=== PATIENT | female | born 1985 | race Caucasian/White ===

== ENCOUNTER 2017-12-29 18:35 | Emergency (ER) | payer OTHER ==
[~2017-12-29] VITALS: Ht 165.1 cm; Wt 77.6 kg
[2017-12-29 18:54] VITALS: Ht 165.1 cm; Wt 77.6 kg
[2017-12-29 19:44] VITALS: BP 134/88
== END 2017-12-29 19:32 | disposition home or self-care (01) ==
LOC: ED 18:35
DX: K02.9 Dental caries, unspecified (principal); R51 Headache; Z88.5 Allergy status to narcotic agent
CPT/HCPCS: J1885

== ENCOUNTER 2018-06-30 08:45 | Emergency (ER) | payer SELFPAY ==
[~2018-06-30] VITALS: Ht 165.1 cm; Wt 68.0 kg
[2018-06-30 08:52] VITALS: Ht 165.1 cm; Wt 68.0 kg
[2018-06-30 10:56] VITALS: BP 108/73
== END 2018-06-30 10:56 | disposition home or self-care (01) ==
LOC: ED 08:45
DX: G40.909 Epilepsy, unspecified, not intractable, without status epilepticus (principal); F31.9 Bipolar disorder, unspecified; F41.9 Anxiety disorder, unspecified; Z88.6 Allergy status to analgesic agent; Z86.73 Personal history of transient ischemic attack (TIA), and cerebral infarction without residual deficits
CPT/HCPCS: J1953; J3490; J7030